=== PATIENT | male | born 1975 | race African-American/Black ===

== ENCOUNTER 2019-09-27 08:30 | Emergency (ER) | payer MEDICAID, OTHER ==
[~2019-09-27] VITALS: Ht 182.9 cm; Wt 77.1 kg
[2019-09-27 08:44] VITALS: BP 119/74
[2019-09-27] MEDS ORDERED: KETOROLAC TROMETH 60MG/2ML VIAL IM ONE (10:00)
== END 2019-09-27 11:09 | disposition home or self-care (01) ==
LOC: ER 08:30 → EDBD 08:30 → ER 11:09
DX: M16.12 Unilateral primary osteoarthritis, left hip (principal)
CPT/HCPCS: 73502; 73560; 96372; 99284; J1885

== ENCOUNTER 2019-12-21 10:57 | Emergency (ER) | payer MEDICAID ==
[~2019-12-21] VITALS: Ht 182.9 cm; Wt 79.4 kg
[2019-12-21 11:14] VITALS: BP 115/70
== END 2019-12-21 11:44 | disposition home or self-care (01) ==
LOC: ER 10:57
DX: M16.12 Unilateral primary osteoarthritis, left hip (principal); F17.200 Nicotine dependence, unspecified, uncomplicated; Z76.0 Encounter for issue of repeat prescription

== ENCOUNTER 2020-03-12 21:59 | Emergency (ER) | payer MEDICAID ==
[~2020-03-12] VITALS: Ht 182.9 cm; Wt 72.6 kg
[2020-03-12 22:05] VITALS: BP 130/90
[2020-03-13] MEDS ORDERED: HYDROcodone-ACET 5/325MG TAB PO ONE (02:00)
[2020-03-13] MEDS ORDERED: KETOROLAC TROMETH 60MG/2ML VIAL IM ONE (02:00)
== END 2020-03-13 02:51 | disposition home or self-care (01) ==
LOC: EDBD 21:59 → ER 22:01
DX: M13.852 Other specified arthritis, left hip (principal); G89.29 Other chronic pain
CPT/HCPCS: 73502; 96372; 99283; J1885

== ENCOUNTER 2022-01-15 15:01 | Emergency (ER) | payer SELFPAY | END 2022-01-15 16:42 | disposition left against medical advice (07) | LOC: ER 15:01 | DX: Z76.0 Encounter for issue of repeat prescription (principal); Z53.21 Procedure and treatment not carried out due to patient leaving prior to being seen by health care provider ==

== ENCOUNTER → 2022-04-05 | Emergency (ER) | payer MEDICAID ==
[~2022-04-05] VITALS: Ht 182.9 cm; Wt 69.1 kg
[~2022-04-05] MED LIST: KETOROLAC TROMETH 60MG/2ML VIAL IM ONE
[2022-04-05 10:00] VITALS: BP 111/70
== END | disposition left against medical advice (07) ==
LOC: ER 09:54
DX: M87.852 Other osteonecrosis, left femur (principal); M25.512 Pain in left shoulder; F17.200 Nicotine dependence, unspecified, uncomplicated; M25.562 Pain in left knee
CPT/HCPCS: 73502; 73562; 96372; 99284; J1885